=== PATIENT | female | born 1945 | race Caucasian/White ===

== ENCOUNTER 2017-01-05 08:58 | Outpatient (CLI) | payer OTHER ==
--- NOTE | 2017-01-05 11:51 | DIAGNOSTIC IMAGING REPORT ---
PROCEDURE: MG BILATERAL SCREENING W/CAD INDICATION: Pain. Prior history of lumpectomy and radiation for right breast carcinoma. TECHNIQUE: CC and MLO digital views. COMPARISON: Compared to 12/26/2015, 12/24/2014, and 12/21/2013. FINDINGS: Computer-aided detection applied. Moderately dense parenchymal pattern. There are postoperative and postradiation changes and parenchymal scar with central dystrophic calcification in the upper inner right breast. No change. IMPRESSION: 1. Stable postoperative and postradiation changes of the right breast. 2. Otherwise negative mammogram. RESULT CODE: 2- Benign finding(s). A. A negative report should not delay biopsy if a dominant or clinically suspicious mass is present. 10-15% of cancers are not identified by x-ray. B. A negative report may reinforce clinical impression. C. Adenosis and dense breasts may obscure an underlying neoplasm. D. False positive reports average 6-10%. E.. A yearly screening mammogram is recommended. A reminder letter will be scheduled.
== END 2017-01-05 23:00 ==
LOC: MAM SRH 08:58
DX: Z12.31 Encounter for screening mammogram for malignant neoplasm of breast (principal); Z85.3 Personal history of malignant neoplasm of breast; Z92.3 Personal history of irradiation; Z98.890 Other specified postprocedural states